=== PATIENT | female | born 1980 | race Caucasian/White ===

== ENCOUNTER → 2024-04-01 16:00 | Outpatient (REF) | payer OTHER, SELFPAY | LOC: WDC 16:00 | PROVIDERS: ATTENDING PHYSICIAN Obstetrics & Gynecology | DX: Z12.31 Encounter for screening mammogram for malignant neoplasm of breast (principal) | CPT/HCPCS: 77063; 77067 ==

== ENCOUNTER → 2024-04-09 09:41 | Outpatient (REF) | payer OTHER, SELFPAY | LOC: WDC 09:41 | PROVIDERS: ATTENDING PHYSICIAN Obstetrics & Gynecology; FAMILY PHYSICIAN Physician Assistant Medical | DX: R92.8 Other abnormal and inconclusive findings on diagnostic imaging of breast (principal) | CPT/HCPCS: 76642 ==

== ENCOUNTER → 2024-07-14 15:06 | Outpatient (REF) | payer OTHER, SELFPAY | LOC: HWRAD 15:06 | PROVIDERS: ATTENDING PHYSICIAN Family Medicine | DX: R22.9 Localized swelling, mass and lump, unspecified (principal) | CPT/HCPCS: 76882 ==

== ENCOUNTER → 2024-12-01 19:11 | Outpatient (REF) | payer OTHER, SELFPAY | LOC: RAD 19:11 | PROVIDERS: ATTENDING PHYSICIAN Physician Assistant Medical | DX: R22.9 Localized swelling, mass and lump, unspecified (principal) | CPT/HCPCS: 73060 ==

== ENCOUNTER → 2024-12-20 12:10 | Outpatient (REF) | payer OTHER, SELFPAY | LOC: PAVMRI 12:10 | PROVIDERS: ATTENDING PHYSICIAN Family Medicine | DX: R22.9 Localized swelling, mass and lump, unspecified (principal) | CPT/HCPCS: 73218 ==

== ENCOUNTER 2025-02-19 05:55 | Day surgery (SDC) | payer BC, SELFPAY ==
[2025-02-08 08:53] LABS: Hematocrit 38.4 % (37.0-47.0); Hemoglobin 12.8 g/dL (12.0-16.0); Mean Corp Hgb Conc. 33.3 g/dL (33.0-37.0); Mean Corpuscular Volume 87.3 fL (81.0-99.0); Platelet Count 176 10^3/uL (130-400); Red Cell Dist. Width 13.2 % (11.5-14.5)
[2025-02-08 09:38] LABS: Blood Urea Nitrogen 16 mg/dl (7-17); Calcium 8.9 mg/dl (8.4-10.2); Carbon Dioxide 26 mmol/L (22-30); Chloride 110 mmol/L (98-107); Glucose 80 mg/dl (70-99); Potassium 5.0 mmol/L (3.5-5.1); Sodium 142 mmol/L (135-145); eGFR > 60.00
[2025-02-08 13:43] VITALS: BMI 29.0
[2025-02-19 06:20] VITALS: BP 108/79
[2025-02-19] MEDS: TYLENOL 1000 MG PO (06:29)
[2025-02-19] MEDS: NORMOSOL-R/PLASMALYTE-A 1000 IV (06:36)
[2025-02-19 08:17] VITALS: BP 108/79; BP 99/61
[2025-02-19 08:30] VITALS: BP 102/60
[2025-02-19 09:00] VITALS: BP 97/63
[2025-02-19 09:15] VITALS: BP 98/63
[2025-02-19 09:45] VITALS: BP 111/64
== END 2025-02-19 10:00 | disposition home or self-care (01) ==
LOC: SDS 05:55
PROVIDERS: ATTENDING PHYSICIAN Surgery; FAMILY PHYSICIAN Physician Assistant Medical
DX: M79.89 Other specified soft tissue disorders (principal); D17.9 Benign lipomatous neoplasm, unspecified
CPT/HCPCS: 24073; 80048; 85027; 86850; 86900; 86901; 88304